=== PATIENT | female | born 1975 | race Caucasian/White ===

== ENCOUNTER → 2020-10-04 15:01 | Outpatient (CLI) | payer OTHER, SELFPAY ==
[2020-10-04] MEDS: COVID-19 VACC #1, MRNA(MOD) 100 MCG/0.5 ML VIAL IM (15:06)
== END ==
PROVIDERS: Visit Provider Internal Medicine
DX: Z23 Encounter for immunization (principal)
CPT/HCPCS: 0011A; 91301

== ENCOUNTER → 2020-11-01 14:40 | Outpatient (CLI) | payer OTHER, MEDICAID, SELFPAY ==
[2020-11-01] MEDS: COVID-19 VACC #2, MRNA(MOD) 100 MCG/0.5 ML VIAL IM (14:44)
== END ==
PROVIDERS: PCP Registered Nurse; Visit Provider Internal Medicine
DX: Z23 Encounter for immunization (principal)
CPT/HCPCS: 0012A; 91301

== ENCOUNTER 2021-10-21 01:17 | Emergency (ER) | payer OTHER, MEDICAID, SELFPAY ==
[2021-10-21] VITALS (11 sets, daily range): BP systolic 118–156; BP diastolic 78–101; PULSE 109–132; RESP 17–22; TEMP 36.5; O2SAT 95–99; BMI 19.1
--- NOTE | 2021-10-21 01:25 | DI.US.S_ITS ---
PROCEDURE: US ABDOMEN LIMITED INDICATIONS: new onset ascites TECHNIQUE: Real-time scanning was performed for ascites, with image documentation. COMPARISON: None. FINDINGS: Large volume of ascites. Skin marker was made in the left lower quadrant for paracentesis. IMPRESSION: Marking for paracentesis in the left lower quadrant. Large volume of ascites. Dictated by: Dalton Eller M.D. on 10/21/2021 at 2:09 Approved by: Dalton Eller M.D. on 10/21/2021 at 2:10
--- NOTE | 2021-10-21 01:26 | DI.RAD.S_ITS ---
PROCEDURE: XR CHEST 1V INDICATIONS: fall, trauma, preop TECHNIQUE: One view of the chest was acquired. COMPARISON: None. FINDINGS: Surgical changes and devices: None. Lungs and pleura: No consolidation. Small left pleural effusion. Trace right pleural effusion. No pneumothorax. Mediastinum: Mediastinal contours appear normal. Heart size is normal. Bones and chest wall: No suspicious bony lesions. Overlying soft tissues appear unremarkable. IMPRESSION: Small left and trace right pleural effusions. Dictated by: Dalton Eller M.D. on 10/21/2021 at 2:08 Approved by: Dalton Eller M.D. on 10/21/2021 at 2:09
--- NOTE | 2021-10-21 01:37 | ED_ITS ---
HPI - Abdominal Pain General Chief Complaint: Abdominal Pain Stated Complaint: drained, liver might be Time Seen by Provider: 10/21/21 01:25 History of Present Illness HPI narrative: 46F nonsmoker with history of anxiety presents with a chief complaint of a swollen tender abdomen for the past 2 weeks. She states she has never had anything like this in the past and was in her normal state of health until 2 weeks ago. She states that overnight she developed significant bloating of her abdomen. She states it is firm and uncomfortable but denies any specific pain. She has had no fever chills nor nausea or vomiting. She denies any jaundice. She has a very mild alcohol history and has never gone through withdrawals, she drinks only occasionally. She denies any signify Tylenol history. He has had no recent illness with fever, chills nor diarrhea. She has no chest pain and only mild shortness of breath. She denies any history of blood clot. She has no urinary complaints Related Data Previous Rx's Medication Instructions Recorded cefpodoxime 100 mg tablet 100 mg PO BID #20 tab 10/21/21 spironolactone 50 mg tablet 50 mg PO DAILY #30 tab 10/21/21 Allergies Allergy/AdvReac Type Severity Reaction Status Date / Time No Known Drug Allergies Allergy Verified 10/21/21 02:39 Review of Systems Review of Systems Narrative: GENERAL: Denies chills, fatigue, malaise, fever, sweats. HEENT: Denies sinus pain, ear pain, sore throat, difficulty swallowing, dizziness. RESPIRATORY: Denies dyspnea, cough, wheezing, hemoptysis, sputum. CARDIOVASCULAR: Denies chest pain, palpitations, orthopnea, edema, GASTROINTESTINAL: See HPI : Denies dysuria, frequency, incontinence, hematuria, urinary retention. MUSCULOSKELETAL: denies weakness, joint pain, or bony pain SKIN: Denies rash, skin lesions, or other NEUROLOGIC: Denies weakness, headache, numbness, change in speech, confusion, seizures, incoordination. PSYCHIATRIC: No concerning psychosocial issues. 12 point review of systems is negative except for those stated above Exam Narrative Exam Narrative: GENERAL: 46] year old patient appears stated age. Well-developed patient, in mild distress. HEAD: Atraumatic. Normocephalic. EYES: Pupils equal round and reactive. Extraocular motions intact. No scleral icterus. No injection or drainage. ENT: Nose without bleeding, purulent drainage. Throat without erythema, ton sillar hypertrophy or exudate. Airway patent. NECK: Trachea midline. Non tender CARDIOVASCULAR: Tachycardic but regular rhythm without murmurs, gallops, or rubs. RESPIRATORY: Clear to auscultation. Breath sounds equal bilaterally. No wheezes, rales, or rhonchi. GASTROINTESTINAL: Firm and distended, decreased bowel sounds, minimal tenderness, fluid wave present consistent with tense ascites EXTREMITIES: No edema or joint tenderness. BACK: Nontender without deformity or crepitance. No flank tenderness. NEURO: AOx3. SKIN: No rash or erythema of visible areas Initial Vital Signs Initial Vital Signs: Vital Signs Pulse Rate 132 H 10/21/21 01:25 Respiratory Rate 20 10/21/21 01:25 Procedures Paracentesis Time Out Performed: Yes Local Anesthetic: lidocaine 1% and with bicarb Amount of anesthesia used (mL): 4 Fluid: clear and sent to lab for analysis Post Procedure Exam: awake, alert, normal BP, normal HR and normal SpO2 Patient Tolerated Procedure: Well Complications: none Course Course Course Narrative: MELD Score (Model For End-Stage Liver Disease) (12 and older) from [email or web address] on 10/21/2021 All calculations should be rechecked by clinician prior to use RESULT SUMMARY: 16 points MELD Score (2016)* 6.0% Estimated 3-Month Mortality INPUTS: Dialysis at least twice in the past week ?> 0 = No Creatinine ?> 0.4 mg/dL Bilirubin ?> 2.9 mg/dL INR ?> 1.3 Sodium ?> 134 mEq/L Orders Ordered: ED Orders 10/21/21 EKG-12 Lead Routine 10/21/21 01:25 US abdomen limited Stat 10/21/21 01:26 XR chest 1V Stat 10/21/21 01:30 Ammonia (NH3) Stat Complete Blood Count AUTO DIFF Stat Comprehensive Metabolic Panel Stat Ethanol (ETOH) Stat Lactate (Lactic Acid) Stat Lipase Stat Magnesium Stat NT-proBNP (BNP-Adult 18+) Stat Prothrombin Time INR Stat Troponin & CK Cardiac Panel Stat 10/21/21 01:35 COVID19 -Nasal RAPID/Pre-Proc Stat 10/21/21 01:49 Blood Culture Stat Hepatitis Acute Panel Stat 10/21/21 02:03 CT chest abd pel w con Stat 10/21/21 02:29 VBG [Venous Blood Gas] Stat 10/21/21 03:20 Amylase Body Fluid Stat Body Fluid Culture Stat Cell Count w Diff Body Fluid Stat Glucose Body Fluid Stat LDH Body Fluid Stat Total Protein Body Fluid Stat 10/21/21 04:20 Urine Microscopic Stat Sodium Chloride (Normal Saline 0.9%) 1,000 mls @ 125 mls/hr IV CONT REJI Last Admin: 10/21/21 01:43 Dose: 125 mls/hr Documented by: CHRISTOPHER Discontinued Medications Furosemide (Furosemide 40 Mg/4 Ml Vial) 40 mg IV NOW ONE Stop: 10/21/21 03:43 Last Admin: 10/21/21 04:01 Dose: 40 mg Documented by: AMANDA Ceftriaxone Sodium 2,000 mg/ (Sodium Chloride) 100 mls @ 200 mls/hr IV NOW ONE Stop: 10/21/21 02:13 Last Infusion: 10/21/21 03:23 Dose: 0 mls/hr Documented by: Admin: 10/21/21 02:40 Dose: 200 mls/hr Documented by: CHRISTOPHER Lidocaine/Sodium Bicarbonate (Lido 1%/Sod Bicarb 8.4% (10ml) 10 Ml Syringe) 10 ml INJ NOW ONE Stop: 10/21/21 02:39 Reevaluation(s) Reevaluation #1: Patient resting comfortably after paracentesis. She states she feels much better, it is easier to breathe, little if any pain in her abdomen. Vital signs are stable. 4 L removed, labs sent Consultations Consultation #1: 0400 - [facility]. No beds, wait list [phone] [facility]. No beds, wait list [phone] [facility]. No beds, wait list [phone] - [facility]. Info sent. awaiting feedback 0440 - . Info sent. awaiting feedback 0450 - has bed. Dr. Wilson is happy to accept Vital Signs Vital signs: Vital Signs - 8 hr 10/21/21 01:25 10/21/21 01:30 10/21/21 01:37 Temperature 97.7 F Pulse Rate 132 H 125 H 118 H Respiratory Rate 20 18 22 Blood Pressure 156/101 H Pulse Oximetry 98 10/21/21 02:00 10/21/21 02:37 10/21/21 02:39 Temperature Pulse Rate 116 H 124 H 119 H Respiratory Rate 21 22 22 Blood Pressure 127/85 Pulse Oximetry 98 96 97 10/21/21 03:00 10/21/21 03:30 10/21/21 03:50 Temperature Pulse Rate 120 H 113 H 109 H Respiratory Rate 20 17 20 Blood Pressure 127/85 Pulse Oximetry 95 98 10/21/21 03:55 10/21/21 04:00 Temperature Pulse Rate 110 H 113 H Respiratory Rate 17 18 Blood Pressure 118/78 Pulse Oximetry 99 98 MDM - Abdominal Pain Lab Data Result diagrams: 10/21/21 01:30 10/21/21 01:30 Labs: Lab Results 10/21/21 10/21/21 10/21/21 Range/Units 01:30 01:30 01:30 WBC 7.9 (4.5-11.0) X10^3/uL RBC 3.64 L (4.0-5.2) X10^6/uL Hgb 13.8 (12.0-16.0) g/dL Hct 40.8 (36-46) % MCV 112.2 H (80-100) fL MCH 37.8 H (26-34) PG MCHC 33.7 (30-36) % RDW 13.7 (11.6-14.8) % Plt Count 212 (150-400) X10^3/uL Neut % (Auto) 76.3 H (50-75) % Lymph % (Auto) 11.5 L (25-40) % [place] % (Auto) 11.0 (3-14) % Eos % (Auto) 0.4 L (2-4) % Baso % (Auto) 0.8 (0-2) % Neut # (Auto) 6100 (2100-3497) /uL Lymph # (Auto) 900 L (9569-7144) /uL [place] # (Auto) 900 (0-900) /uL Eos # (Auto) 0 (0-450) /uL Baso # (Auto) 100 (0-100) /uL RBC Morphology See below Macrocytosis 1+ H PT 15.1 H (10.1-12.7) SECONDS INR 1.3 (0.9-1.3) VBG pH (7.33-7.43) VBG pCO2 (45-50) mmHg VBG pO2 (35-45) mmHg VBG HCO3 (23-28) mmol/L VBG Total CO2 (24-29) mmol/L VBG O2 Saturation (70-75) % VBG Base Excess (0-4) mmol/L Sodium 134 L (137-145) mmol/L Potassium 3.3 L (3.4-5.1) mmol/L Chloride 98 (98-107) mmol/L Carbon Dioxide 26 (22-32) mmol/L BUN 4 L (7-17) mg/dL Creatinine 0.40 L (0.52-1.04) mg/dL Estimated GFR > 60 (>60) mL/min BUN/Creatinine Ratio 10.0 (6-22) Glucose 142 H (70-100) mg/dL Lactate (0.7-2.1) mmol/L Calcium 8.3 L (8.4-10.2) mg/dL Magnesium (1.6-2.3) mg/dL Total Bilirubin 2.9 H (0.2-1.3) mg/dL AST 125 H (14-36) IU/L ALT 39 H (<35) IU/L Alkaline Phosphatase 254 H (38-126) U/L Ammonia (9-30) umol/L Total Creatine Kinase (30-135) U/L CK-MB (CK-2) CK-MB (CK-2) Rel Index Troponin I (0.01-0.034) ng/mL NT-Pro-B Natriuret Pep (<125) pg/mL Total Protein 6.9 (6.3-8.2) g/dL Albumin 3.1 L (3.5-5.0) g/dL Globulin 3.8 (1.7-4.1) g/dL Albumin/Globulin Ratio 0.8 L (1.0-2.8) Lipase (23-300) U/L Urine RBC (0-5/HPF) Urine WBC (0-5/HPF) Ur Squamous Epith Cells (0-5/HPF) Urine Bacteria (None) Ur Culture Indicated? Micro UA Comment Fluid Color Fluid Appearance Fluid RBC /uL Fld Tot Nucleated Cell /uL Fluid Polynuclear WBCs % Fluid Mononuclear WBCs % Fluid Eosinophils Fluid Other Cells Body Fluid Clot Fluid Glucose mg/dL Fluid Total Protein g/dL Fluid LDH U/L Fluid Amylase IU/L Ethyl Alcohol ( - 10) mg/dL SARS-CoV-2 (PCR) (Negative) 10/21/21 10/21/21 10/21/21 Range/Units 01:30 01:30 01:30 WBC (4.5-11.0) X10^3/uL RBC (4.0-5.2) X10^6/uL Hgb (12.0-16.0) g/dL Hct (36-46) % MCV (80-100) fL MCH (26-34) PG MCHC (30-36) % RDW (11.6-14.8) % Plt Count (150-400) X10^3/uL Neut % (Auto) (50-75) % Lymph % (Auto) (25-40) % [place] % (Auto) (3-14) % Eos % (Auto) (2-4) % Baso % (Auto) (0-2) % Neut # (Auto) (8961-7480) /uL Lymph # (Auto) (4093-9019) /uL [place] # (Auto) (0-900) /uL Eos # (Auto) (0-450) /uL Baso # (Auto) (0-100) /uL RBC Morphology Macrocytosis PT (10.1-12.7) SECONDS INR (0.9-1.3) VBG pH (7.33-7.43) VBG pCO2 (45-50) mmHg VBG pO2 (35-45) mmHg VBG HCO3 (23-28) mmol/L VBG Total CO2 (24-29) mmol/L VBG O2 Saturation (70-75) % VBG Base Excess (0-4) mmol/L Sodium (137-145) mmol/L Potassium (3.4-5.1) mmol/L Chloride (98-107) mmol/L Carbon Dioxide (22-32) mmol/L BUN (7-17) mg/dL Creatinine (0.52-1.04) mg/dL Estimated GFR (>60) mL/min BUN/Creatinine Ratio (6-22) Glucose (70-100) mg/dL Lactate 4.3 H* (0.7-2.1) mmol/L Calcium (8.4-10.2) mg/dL Magnesium 1.5 L (1.6-2.3) mg/dL Total Bilirubin (0.2-1.3) mg/dL AST (14-36) IU/L ALT (<35) IU/L Alkaline Phosphatase (38-126) U/L Ammonia (9-30) umol/L Total Creatine Kinase 97 (30-135) U/L CK-MB (CK-2) TNP CK-MB (CK-2) Rel Index TNP Troponin I < 0.012 (0.01-0.034) ng/mL NT-Pro-B Natriuret Pep 297 H (<125) pg/mL Total Protein (6.3-8.2) g/dL Albumin (3.5-5.0) g/dL Globulin (1.7-4.1) g/dL Albumin/Globulin Ratio (1.0-2.8) Lipase 104 (23-300) U/L Urine RBC (0-5/HPF) Urine WBC (0-5/HPF) Ur Squamous Epith Cells (0-5/HPF) Urine Bacteria (None) Ur Culture Indicated? Micro UA Comment Fluid Color Fluid Appearance Fluid RBC /uL Fld Tot Nucleated Cell /uL Fluid Polynuclear WBCs % Fluid Mononuclear WBCs % Fluid Eosinophils Fluid Other Cells Body Fluid Clot Fluid Glucose mg/dL Fluid Total Protein g/dL Fluid LDH U/L Fluid Amylase IU/L Ethyl Alcohol < 10 ( - 10) mg/dL SARS-CoV-2 (PCR) (Negative) 10/21/21 10/21/21 10/21/21 Range/Units 01:30 01:35 02:29 WBC (4.5-11.0) X10^3/uL RBC (4.0-5.2) X10^6/uL Hgb (12.0-16.0) g/dL Hct (36-46) % MCV (80-100) fL MCH (26-34) PG MCHC (30-36) % RDW (11.6-14.8) % Plt Count (150-400) X10^3/uL Neut % (Auto) (50-75) % Lymph % (Auto) (25-40) % [place] % (Auto) (3-14) % Eos % (Auto) (2-4) % Baso % (Auto) (0-2) % Neut # (Auto) (1514-5437) /uL Lymph # (Auto) (3330-5903) /uL [place] # (Auto) (0-900) /uL Eos # (Auto) (0-450) /uL Baso # (Auto) (0-100) /uL RBC Morphology Macrocytosis PT (10.1-12.7) SECONDS INR (0.9-1.3) VBG pH 7.49 H (7.33-7.43) VBG pCO2 38.1 L (45-50) mmHg VBG pO2 26 L (35-45) mmHg VBG HCO3 29 H (23-28) mmol/L VBG Total CO2 30 H (24-29) mmol/L VBG O2 Saturation 54 L (70-75) % VBG Base Excess 5.0 H (0-4) mmol/L Sodium (137-145) mmol/L Potassium (3.4-5.1) mmol/L Chloride (98-107) mmol/L Carbon Dioxide (22-32) mmol/L BUN (7-17) mg/dL Creatinine (0.52-1.04) mg/dL Estimated GFR (>60) mL/min BUN/Creatinine Ratio (6-22) Glucose (70-100) mg/dL Lactate (0.7-2.1) mmol/L Calcium (8.4-10.2) mg/dL Magnesium (1.6-2.3) mg/dL Total Bilirubin (0.2-1.3) mg/dL AST (14-36) IU/L ALT (<35) IU/L Alkaline Phosphatase (38-126) U/L Ammonia < 9 L (9-30) umol/L Total Creatine Kinase (30-135) U/L CK-MB (CK-2) CK-MB (CK-2) Rel Index Troponin I (0.01-0.034) ng/mL NT-Pro-B Natriuret Pep (<125) pg/mL Total Protein (6.3-8.2) g/dL Albumin (3.5-5.0) g/dL Globulin (1.7-4.1) g/dL Albumin/Globulin Ratio (1.0-2.8) Lipase (23-300) U/L Urine RBC (0-5/HPF) Urine WBC (0-5/HPF) Ur Squamous Epith Cells (0-5/HPF) Urine Bacteria (None) Ur Culture Indicated? Micro UA Comment Fluid Color Fluid Appearance Fluid RBC /uL Fld Tot Nucleated Cell /uL Fluid Polynuclear WBCs % Fluid Mononuclear WBCs % Fluid Eosinophils Fluid Other Cells Body Fluid Clot Fluid Glucose mg/dL Fluid Total Protein g/dL Fluid LDH U/L Fluid Amylase IU/L Ethyl Alcohol ( - 10) mg/dL SARS-CoV-2 (PCR) Negative (Negative) 10/21/21 10/21/21 10/21/21 Range/Units 03:20 04:00 04:20 WBC (4.5-11.0) X10^3/uL RBC (4.0-5.2) X10^6/uL Hgb (12.0-16.0) g/dL Hct (36-46) % MCV (80-100) fL MCH (26-34) PG MCHC (30-36) % RDW (11.6-14.8) % Plt Count (150-400) X10^3/uL Neut % (Auto) (50-75) % Lymph % (Auto) (25-40) % [place] % (Auto) (3-14) % Eos % (Auto) (2-4) % Baso % (Auto) (0-2) % Neut # (Auto) (8398-0283) /uL Lymph # (Auto) (2527-8324) /uL [place] # (Auto) (0-900) /uL Eos # (Auto) (0-450) /uL Baso # (Auto) (0-100) /uL RBC Morphology Macrocytosis PT (10.1-12.7) SECONDS INR (0.9-1.3) VBG pH (7.33-7.43) VBG pCO2 (45-50) mmHg VBG pO2 (35-45) mmHg VBG HCO3 (23-28) mmol/L VBG Total CO2 (24-29) mmol/L VBG O2 Saturation (70-75) % VBG Base Excess (0-4) mmol/L Sodium (137-145) mmol/L Potassium (3.4-5.1) mmol/L Chloride (98-107) mmol/L Carbon Dioxide (22-32) mmol/L BUN (7-17) mg/dL Creatinine (0.52-1.04) mg/dL Estimated GFR (>60) mL/min BUN/Creatinine Ratio (6-22) Glucose (70-100) mg/dL Lactate 1.2 (0.7-2.1) mmol/L Calcium (8.4-10.2) mg/dL Magnesium (1.6-2.3) mg/dL Total Bilirubin (0.2-1.3) mg/dL AST (14-36) IU/L ALT (<35) IU/L Alkaline Phosphatase (38-126) U/L Ammonia (9-30) umol/L Total Creatine Kinase (30-135) U/L CK-MB (CK-2) CK-MB (CK-2) Rel Index Troponin I (0.01-0.034) ng/mL NT-Pro-B Natriuret Pep (<125) pg/mL Total Protein (6.3-8.2) g/dL Albumin (3.5-5.0) g/dL Globulin (1.7-4.1) g/dL Albumin/Globulin Ratio (1.0-2.8) Lipase (23-300) U/L Urine RBC None seen (0-5/HPF) Urine WBC None seen (0-5/HPF) Ur Squamous Epith Cells 0-1 /hpf (0-5/HPF) Urine Bacteria None seen (None) Ur Culture Indicated? Cult not indicated Micro UA Comment Microscopic normal Fluid Color Yellow Fluid Appearance Clear Fluid RBC 123 /uL Fld Tot Nucleated Cell 140 /uL Fluid Polynuclear WBCs 20 % Fluid Mononuclear WBCs 80 % Fluid Eosinophils Not Reportable Fluid Other Cells Not Reportable Body Fluid Clot No clots present Fluid Glucose 122 mg/dL Fluid Total Protein < 2.0 g/dL Fluid LDH 189 U/L Fluid Amylase < 30 IU/L Ethyl Alcohol ( - 10) mg/dL SARS-CoV-2 (PCR) (Negative) Imaging Data Chest x-ray: Radiologist's Impression: [address] [address] XRay Report Signed Patient: Tala Lyon MR#: [id number] : 1975 Acct:[id number] Age/Sex: 46 / F Date of Service: 10/21/21 Loc: ED Accession Number: [id number] ?? Procedure: XR chest 1V Ordering Provider: Tomas Grigsby D.O. PROCEDURE:? XR CHEST 1V ? INDICATIONS:? fall, trauma, preop ? TECHNIQUE:? One view of the chest was acquired.? ? COMPARISON:? None. ? FINDINGS:? ? Surgical changes and devices:? None.? ? Lungs and pleura:? No consolidation.? Small left pleural effusion.? Trace right pleural effusion.? No pneumothorax.? ? Mediastinum:? Mediastinal contours appear normal.? Heart size is normal.? ? Bones and chest wall:? No suspicious bony lesions.? Overlying soft tissues appear unremarkable.? ? IMPRESSION:? Small left and trace right pleural effusions. ? ? Dictated by: Dalton Eller M.D. on 10/21/2021 at 2:08 ? ? Approved by: Dalton Eller M.D. on 10/21/2021 at 2:09 ? US - abdomen: Radiologist's Impression: Launch?[place] [address] Ultrasound Report Signed Patient: Tala Lyon MR#: [id number] : 1975 Acct:[id number] Age/Sex: 46 / F Date of Service: 10/21/21 Loc: ED Accession Number: [id number] ?? Procedure: US abdomen limited Ordering Provider: Tomas Grigsby D.O. PROCEDURE:? US ABDOMEN LIMITED ? INDICATIONS:? new onset ascites ? TECHNIQUE:? Real-time scanning was performed for ascites, with image documentation.? ? COMPARISON:? None. ? FINDINGS:? Large volume of ascites.? Skin marker was made in the left lower quadrant for paracentesis.? ? IMPRESSION:? Marking for paracentesis in the left lower quadrant.? ? Large volume of ascites. ? ? ? Dictated by: Dalton Eller M.D. on 10/21/2021 at 2:09 ? ? Approved by: Dalton Eller M.D. on 10/21/2021 at 2:10? CT scan - chest: Radiologist's Impression: 1. Bilateral pleural effusions, moderate on left and small on right with bibasilar atelectasis, left greater than right. 2. Small scattered pulmonary nodules, none larger than 4 mm 3. Heterogeneous liver with large volume ascites 4. Possible gallbladder sludge MDM Narrative Medical decision making narrative: Patient presents with 2 weeks of abdominal swelling and no report of prior liver failure and no prior episodes of ascites. Extensive workup was performed including labs, ultrasound, CT, paracentesis. Significant discussion at the bedside throughout the visit explained to patient the concern and need for admission, including transfer to tertiary care facility with in house Gastroenterology to further stabilize, value 8 and treat her serious medical condition. Patient had been excepted at [facility] and during our final discussion patient states that after much thought she cannot afford to be admitted at this time. 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 We had a lengthy discussion with nursing at the bedside regarding other opportunities, I offered to call any family members or friends or involve any re source as we could to try to help her at home, patient states that there is no other option. She clearly understands the risk of leaving which includes but is not limited to use severe illness, infection, permanent disability or even . She understands she may return immediately, at any point without fever or attributes carpenter or push back and that we will resume care. She is provided with multiple phone numbers including [facility] GI clinic. Questions have been answered to her apparent satisfaction. Critical Care Time Critical Care Time Critical Care Time: Yes Total Critical Care Time: 60 Attestation: The high probability of a clinically significant, sudden or life threatening deterioration of the [GI] system(s) required my full and direct attention, intervention and personal management. The aggregate critical care time was [60] minutes. This time is in addition to time spent performing reported procedures but includes the following: [x] Data Review and interpretation [x] Patient assessment and monitoring of vital signs [x] Documentation [x] Medication orders and management Discharge Plan Departure Patient Disposition: Left Against Medical Advice Clinical Impression: Acute liver failure, Abdominal ascites Activity Restrictions/Additional Instructions: *You have been diagnosed with [new onset liver failure with ascites *What to do: *Please continue to take your regular medications as directed. [x ] New medication prescriptions sent to your pharmacy: [ [facility]] [ ] New medication written as a paper prescription [ ] No new medications given *We have discussed at length how concerned I am about your health and it seems clear that you understand the risk of leaving against our advice includes (but is not limited to) severe infection, permanent disability and even . *As we discussed, you may return immediately if you change your mind, and without any fear of retribution or push back. We will absolutely welcome you with open arms and will do anything we can to try to help. *I had been working with multiple hospitals, but the one that had accepted you and had an available bed was [facility]. I have included the contact info for their GI Clinic below if you think that an outpatient approach might be easier [facility] - [phone] *Please follow up with your primary care provider As Soon As Possible, call for an appointment. Let them know you were seen in the Emergency Department and that we ask that you be seen in follow up. We will electronically transmit a record of today's note if your PCP is in our system *If you do not have a primary care provider please contact the [facility] Resource line at [phone]. They will ask some questions about your medical history and help get you set up with a doctor in the community. *Return to Emergency Department if you should have any new, worsening or concerning symptoms, such as [fever greater than 101 F, shaking chills, worsening pain, persistent vomiting or other bothersome symptoms] Prescriptions: New spironolactone 50 mg tablet 50 mg PO DAILY Qty: 30 0RF cefpodoxime 100 mg tablet 100 mg PO BID Qty: 20 0RF Rx Instructions: must administer with a meal/food Referrals: Cristain Henderson ARNP [Primary Care Provider] - Stand Alone Forms: Against Medical Advice
[2021-10-21] MEDS: SODIUM CHLORIDE 0.9% 1,000 ML 125 ML IV (01:43)
[2021-10-21 01:46] LABS: Add Manual Diff / Slide Review NO; Basophils Absolute Auto 100 /uL (0-100); Basophils Percent Auto 0.8 % (0-2); Eosinophils Absolute Auto 0 /uL (0-450); Eosinophils Percent Auto 0.4 % (2-4); Hematocrit 40.8 % (36-46); Hemoglobin 13.8 g/dL (12.0-16.0); Lymphocytes Absolute Auto 900 /uL (1100-4500); Lymphocytes Percent Auto 11.5 % (25-40); Mean Corpuscular HGB Conc 33.7 % (30-36); Mean Corpuscular Hemoglobin 37.8 PG (26-34); Mean Corpuscular Volume 112.2 fL (80-100); Monocytes Absolute Auto 900 /uL (0-900); Neutrophils Absolute Auto 6100 /uL (1500-7000); Neutrophils Percent Auto 76.3 % (50-75); Platelet Count 212 X10^3/uL (150-400); Red Blood Cell Count 3.64 X10^6/uL (4.0-5.2); Red Cell Distribution Width 13.7 % (11.6-14.8); White Blood Cell Count 7.9 X10^3/uL (4.5-11.0)
[2021-10-21 01:53] LABS: INR 1.3 (0.9-1.3); Prothrombin Time 15.1 SECONDS (10.1-12.7)
[2021-10-21 01:56] LABS: Ammonia (NH3) < 9 umol/L (9-30)
[2021-10-21 01:58] LABS: Albumin 3.1 g/dL (3.5-5.0); Albumin Globulin Ratio 0.8 (1.0-2.8); Alkaline Phosphatase 254 U/L (38-126); Aspartate Aminotransferase 125 IU/L (14-36); Bilirubin Total 2.9 mg/dL (0.2-1.3); Blood Urea Nitrogen 4 mg/dL (7-17); Calcium 8.3 mg/dL (8.4-10.2); Carbon Dioxide 26 mmol/L (22-32); Chloride 98 mmol/L (98-107); Creatine Kinase 97 U/L (30-135); Estimated Glomerular Filt Rate > 60 mL/min (>60); Globulin 3.8 g/dL (1.7-4.1); Glucose 142 mg/dL (70-100); HEMOLYSIS < 15 (0-50); Lipase 104 U/L (23-300); Magnesium 1.5 mg/dL (1.6-2.3); Potassium 3.3 mmol/L (3.4-5.1); Sodium 134 mmol/L (137-145); Total Protein 6.9 g/dL (6.3-8.2)
[2021-10-21 01:59] LABS: Ethanol (ETOH) < 10 mg/dL
[2021-10-21 02:02] LABS: COVID19 -Nasal RAPID Negative (Negative)
--- NOTE | 2021-10-21 02:03 | DI.CT.S_ITS ---
PROCEDURE: CT CHEST ABD PEL W CON INDICATIONS: new onset ascites, abdominal pain TECHNIQUE: After the administration of intravenous contrast, axial sections acquired from the supraclavicular neck to the pubic symphysis. Coronal and sagittal reformats were performed. For radiation dose reduction, the following was used: automated exposure control, adjustment of mA and/or kV according to patient size. COMPARISON:[facility], CR, XR CHEST 1V, 10/21/2021, 1:51. [facility], US, US ABDOMEN LIMITED, 10/21/2021, 1:57. FINDINGS: Image quality: Excellent. CHEST: Lower Neck: No enlarged lymph nodes. Thyroid: Within normal limits. Axillae: No enlarged lymph nodes. Chest Wall: Unremarkable. Lungs and Airways: Bibasilar atelectasis. There are a couple of nodules in the right middle lobe: Nodule 1: 3 mm; right middle lobe; series 6 image 139; solid. Nodule 2: 3 mm; right middle lobe; series 6136; solid.. Pleura: No pneumothorax. Bilateral pleural effusions, moderate on the left and small on the right. Heart: Heart size is normal. No pericardial effusion. Thoracic Vessels: The aorta and pulmonary arteries demonstrate normal size. Mediastinum and Gayle: No enlarged lymph nodes. Esophagus: No wall thickening. Small hiatal hernia. There are esophageal varices. ABDOMEN: Liver: Normal in size. Liver has nodular contour and demonstrates diffusely heterogeneous enhancement suggesting cirrhosis. Gallbladder: May contain sludge. Biliary ducts: Unremarkable. Pancreas: Unremarkable. Spleen: Unremarkable. Adrenal Glands: Unremarkable. Kidneys and Ureters: Unremarkable. Stomach and Bowel: Stomach, small bowel loops, and colon are normal in caliber. Mild diffuse colonic wall thickening involving cecum, ascending colon and hepatic flexure. Normal appendix. Peritoneum: There is a large amount of free intraperitoneal fluid. No free air. Ventral Wall: No hernia. Abdominal Nodes: No retroperitoneal or mesenteric adenopathy by size criteria. Vessels: Aorta and inferior vena cava are normal in size. Recannulized umbilical vein. PELVIS: Pelvic Organs: Uterus is normal. Ovaries are normal in size and demonstrates mild lobulated contour. Bladder: Unremarkable. Pelvic Nodes: No enlarged lymph nodes. Miscellaneous: No inguinal hernias are seen. There is body wall edema. Bones: Unremarkable. IMPRESSION: 1. Liver demonstrates nodular contour and heterogeneous enhancement, suggesting cirrhosis. 2. There is a large amount of ascites. 3. Small pleural effusions bilaterally, moderate on the left and small on the right. There are bibasilar atelectasis. 4. A couple of small right middle lobe lung nodule. Please see enclosed follow-up recommendation. 5. Mild colonic wall thickening involving cecum, ascending colon and hepatic flexure. The finding may be secondary to hypoalbuminemia associated with liver disease. Command clinical correlation. 6. Esophageal varices and recannulized umbilical vein, in keeping with portal hypertension. No significant discrepancy with the material handler 1st shift radiology preliminary report. Fleischner Society criteria for SOLID lung nodule followup. Nodule size (mm)Low-risk patientHigh-risk patient?4No follow-up neededFollow-up at 12 mo; if no change, no further follow-up>[id number] CT at 12 mo; if no change, no further follow-up needed.Initial follow-up CT at 6-12 mo, then 18-24 mo if no change. >6-8Initial follow-up CT at 6-12 mo, then 18-24 mo if no change. Initial follow-up CT at 3-6 mo, then 9-12 mo and 24 mo if no change. >8Follow-up CT at 3, 9, 24 mo. Or PET and/or biopsy.Same as for low-risk pts. Dictated by: Cindi Hill M.D. on 10/21/2021 at 8:18 Approved by: Cindi Hill M.D. on 10/21/2021 at 8:38
[2021-10-21 02:04] LABS: Alanine Aminotransferase 39 IU/L (<35); Macrocytosis 1+
[2021-10-21 02:07] LABS: Lactate (Lactic Acid) 4.3 mmol/L (0.7-2.1)
[2021-10-21 02:09] LABS: NT-proBNP (BNP-Adult 18+) 297 pg/mL (<125); Troponin I < 0.012 ng/mL (0.01-0.034)
[2021-10-21] MEDS: cefTRIAXone 2,000 MG in SODIUM CHLORIDE 0.9% 100 ML 200 ML IV (02:40)
[2021-10-21 02:52] LABS: pH VBG 7.49 (7.33-7.43)
[2021-10-21 02:53] LABS: HCO3 VBG 29 mmol/L (23-28); Oxygen Saturation VBG 54 % (70-75); PCO2 VBG 38.1 mmHg (45-50); PO2 VBG 26 mmHg (35-45); Total CO2 VBG 30 mmol/L (24-29)
[2021-10-21] MEDS: LIDO 1%/SOD BICARB 8.4% (10ML) 10 ML SYRINGE INJ (03:10)
[2021-10-21 03:41] LABS: Reflexed Lactate in 2 Hours Y
[2021-10-21 03:48] LABS: Body Fluid Tot Nucleated Cells 140 /uL
--- NOTE | 2021-10-21 03:49 | PC.NURSE ---
4L of ascites removed from pt after paracentesis
[2021-10-21 03:58] LABS: Amylase Body Fluid < 30 IU/L; Glucose Body Fluid 122 mg/dL; LDH Body Fluid 189 U/L; Total Protein Body Fluid < 2.0 g/dL
[2021-10-21] MEDS: FUROSEMIDE 40 MG/4 ML VIAL IV (04:01)
[2021-10-21 04:08] LABS: Body Fluid Red Blood Cells 123 /uL
[2021-10-21 04:19] LABS: Body Fluid Appearance CLEAR; Body Fluid Clotted? NO CLOTS PRESENT; Body Fluid Color YELLOW
[2021-10-21 04:26] LABS: Lactate 2HR (Lactic Acid Rflx) 1.2 mmol/L (0.7-2.1)
[2021-10-21 04:31] LABS: Mononuclear WBC Body Fluid 80 %; Polynuclear WBC Body Fluid 20 %
[2021-10-21 04:47] LABS: Bacteria Urine None Seen; Culture Indicated Urine Cult Not Indicated; RBC Urine None Seen (0-5/HPF); Squamous Epithelial Cell Urine 0-1 /HPF (0-5/HPF); Urine Comments Microscopic Normal; WBC Urine None Seen (0-5/HPF)
--- NOTE | 2021-10-21 05:14 | PC.NURSE ---
pt has made decision to leave A
[2021-10-22 01:07] LABS: HBsAg Screen Negative (Negative); Hepatitis A Antibody IgM Negative (Negative); Hepatitis B Core Antibody IgM Negative (Negative); Hepatitis C Antibody <0.1 s/co ratio (0.0-0.9)
== END 2021-10-21 05:38 | disposition left against medical advice (07) ==
PROVIDERS: Emergency Provider Emergency Medicine; PCP Registered Nurse
DX: K72.00 Acute and subacute hepatic failure without coma (principal); R18.8 Other ascites; Z20.822 Contact with and (suspected) exposure to COVID-19; Z53.29 Procedure and treatment not carried out because of patient's decision for other reasons
CPT/HCPCS: 36415; 49082; 71045; 71260; 74177; 76705; 80053; 80074; 80320; 81015; 82140; 82150; 82550; 82805; 82945; 83605; 83615; 83690; 83735; 83880; 84157; 84484; 85025; 85610; 87040; 87070; 87075; 87205; 87635; 89051; 93005; 96365; 96375; 99285; 99291; C9803; J0696; J1940; Q9967